=== PATIENT | female | born 1985 | race Two or more races ===

== ENCOUNTER 2020-12-31 14:00 | Emergency (ER) | payer MEDICAID ==
[~2020-12-31] VITALS: Ht 152.4 cm; Wt 45.0 kg
--- NOTE | 2020-12-31 15:49 | NUR ---
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
--- NOTE | 2020-12-31 15:54 | NUR ---
PT PRESENTS WITH ABDOMINAL DISTENTION, STATES SHE WAS NOT ABLE TO HAVE WEEKLY PARACENTESIS TODAY. DR. GILL AT BEDSIDE.
[2020-12-31] MEDS ORDERED: FOLI1TAB32 PO (16:00)
[2020-12-31] MEDS ORDERED: LACT10SO28 PO (16:00)
[2020-12-31] MEDS ORDERED: THIA100T27 PO (16:00)
[2020-12-31] MEDS ORDERED: FERR324T5 PO (16:00)
[2020-12-31] MEDS ORDERED: MIDO10TA PO (16:00)
[2020-12-31] MEDS ORDERED: LIDOCAINE 1%, 10ML ONE (16:12)
--- NOTE | 2020-12-31 16:15 | NUR ---
PT TRANSPORTED TO IR FOR PARACENTESIS.
[2020-12-31 16:18] LABS: BASOPHILS % (AUTO) 1 % (0-1); EOSINOPHILS % (AUTO) 2 % (1-7); LYMPHOCYTES % (AUTO) 12 % (22-44); MEAN CORPUSCULAR HEMOGLOBIN 35.6 pg (27.0-34.8); MEAN CORPUSCULAR HGB CONC 34.3 g/dL (32.4-35.8); MEAN PLATELET VOLUME 7.2 fL (7.4-10.4); MONOCYTES % (AUTO) 12 % (2-9); NEUTROPHILS % (AUTO) 74 % (42-75); PLATELET COUNT 168 x10^3/uL (130-400); RED BLOOD COUNT 2.63 x10^6/uL (3.82-5.3); RED CELL DISTRIBUTION WIDTH 16.3 % (9.6-15.2)
[2020-12-31 16:31] LABS: ALANINE AMINOTRANSFERASE 15 U/L (12-78); ALBUMIN 3.2 g/dL (3.4-5.0); ANION GAP 9 mmol/L (5-15); CALCIUM 8.1 mg/dL (8.5-10.1); CHLORIDE 99 mmol/L (98-107)
[2020-12-31 16:33] LABS: ALKALINE PHOSPHATASE 131 U/L (45-117); BILIRUBIN,TOTAL 3.7 mg/dL (0.2-1.0); CREATININE 0.58 mg/dL (0.55-1.02); TOTAL PROTEIN 6.6 g/dL (6.4-8.2)
[2020-12-31 16:51] VITALS: BP 104/68
--- NOTE | 2020-12-31 16:51 | NUR ---
PT BACK FROM IR, VSS.
[2020-12-31] MEDS ORDERED: ONDANSETRON ODT 4 MG ONE (17:12)
[2020-12-31] MEDS ORDERED: HYDROcodone/APAP 5/325 TABLET ONE (17:13)
[2020-12-31] MEDS ORDERED: ONDANSETRON ODT 4 MG PO ONE (17:30)
[2020-12-31] MEDS ORDERED: HYDROcodone/APAP 5/325 TABLET PO ONE (17:30)
== END 2020-12-31 17:52 | disposition home or self-care (01) ==
LOC: ED 17:46
DX: K70.31 Alcoholic cirrhosis of liver with ascites (principal); R00.0 Tachycardia, unspecified
CPT/HCPCS: 36415; 49083; 80053; 83690; 85025; 99285; J3490

== ENCOUNTER 2021-01-03 09:09 | Emergency (ER) | payer MEDICAID ==
[~2021-01-03] VITALS: Ht 152.4 cm; Wt 45.1 kg
[~2021-01-03 09:09] MED LIST: FERR324T5 PO; FOLI1TAB32 PO; LACT10SO28 PO; MIDO10TA PO; THIA100T27 PO
--- NOTE | 2021-01-03 09:30 | NUR ---
ERP WAS IN TO SEE PT. SAME TRIAGE NOTE; PT REPORTS N/V, WEAKNESS SINCE PARACENTESIS ON THURSDAY.
[2021-01-03] MEDS ORDERED: ONDANSETRON 2MG/ML, 2ML ONE (09:52)
[2021-01-03] MEDS ORDERED: FAMOTIDINE 20 MG/2 ML ONE (09:52)
[2021-01-03] MEDS ORDERED: ONDANSETRON 2MG/ML, 2ML IVPush ONE (10:00)
[2021-01-03] MEDS ORDERED: SODIUM CHLORIDE 0.9% 1,000ML IVBOLUS ONE ×3 (10:00→14:00)
[2021-01-03] MEDS ORDERED: SODIUM CHLORIDE FLUSH 10ML SYR IVF ONE (10:00)
[2021-01-03] MEDS ORDERED: FAMOTIDINE 20 MG/2 ML IVPush ONE (10:00)
[2021-01-03] MEDS ORDERED: BUME1TAB21 PO (10:03)
[2021-01-03 10:05] LABS: BASOPHILS % (AUTO) 1 % (0-1); EOSINOPHILS % (AUTO) 2 % (1-7); LYMPHOCYTES % (AUTO) 12 % (22-44); MEAN CORPUSCULAR HEMOGLOBIN 35.4 pg (27.0-34.8); MEAN CORPUSCULAR HGB CONC 34.8 g/dL (32.4-35.8); MEAN PLATELET VOLUME 6.7 fL (7.4-10.4); MONOCYTES % (AUTO) 12 % (2-9); NEUTROPHILS % (AUTO) 74 % (42-75); PLATELET COUNT 163 x10^3/uL (130-400); RED BLOOD COUNT 2.65 x10^6/uL (3.82-5.3); RED CELL DISTRIBUTION WIDTH 15.6 % (9.6-15.2)
--- NOTE | 2021-01-03 10:08 | NUR ---
PT VOMITED ABOUT 200ML BROWN FLUID. C/O MILD DIFFUSE ABD PAIN. ERP NOTIFIED. MEDICATED PER ORDERS. 500ML IV BOLUS INFUSING. PT RESTING IN [facility] NOW. AT .
[2021-01-03 10:10] LABS: ALANINE AMINOTRANSFERASE 17 U/L (12-78); ALBUMIN 2.9 g/dL (3.4-5.0); ANION GAP 6 mmol/L (5-15); CALCIUM 8.7 mg/dL (8.5-10.1); CHLORIDE 99 mmol/L (98-107); CREATININE 0.53 mg/dL (0.55-1.02)
[2021-01-03 10:18] LABS: ALKALINE PHOSPHATASE 121 U/L (45-117); BILIRUBIN,TOTAL 4.3 mg/dL (0.2-1.0); TOTAL PROTEIN 6.7 g/dL (6.4-8.2)
--- NOTE | 2021-01-03 10:53 | NUR ---
PT STATES, "MY STOMACH FEELS A LITTLE BETTER". WILL GIVE 2ND 500ML BOLUS PER ORDERS. REMAINS AT BS.
[2021-01-03 10:57] LABS: ACANTHOCYTES 1+; SCHISTOCYTES 1+
[2021-01-03 10:58] LABS: <PLATELET ESTIMATE> ADEQUATE; <PLT MORPHOLOGY> NORMAL PLT MORPH
--- NOTE | 2021-01-03 12:52 | NUR ---
PT RESTING IN [facility] WITH AT , AWAKENS EASILY. STATES SHE HAD "A FEW SIPS" OF WATER AND 1 SMALL PRETZEL. DENIES NAUSEA AT THIS TIME. CHART UP FOR RECHECK.
--- NOTE | 2021-01-03 13:30 | NUR ---
ERP AT FOR RECHECK.
[2021-01-03 14:38] VITALS: BP 103/65
--- NOTE | 2021-01-03 14:38 | NUR ---
D/C INSTRUCTIONS, MEDS & F/U APPT RV'WD WITH PT, SHE VERBALIZES UNDERSTANDING. RX GIVEN X1. ASSISTED OUT OF ED VIA OWN WC WITH SPOUSE. CAB VOUCHER PROVIDED.
== END 2021-01-03 14:41 | disposition home or self-care (01) ==
LOC: ED 09:11
DX: R11.2 Nausea with vomiting, unspecified (principal); R42 Dizziness and giddiness
CPT/HCPCS: 36415; 80053; 83690; 85025; 96361; 96374; 96375; 99285; J2405; J7030

== ENCOUNTER 2021-01-04 12:05 | Inpatient (IN) | payer MEDICAID ==
[~2021-01-04] VITALS: Ht 152.4 cm; Wt 46.3 kg
[~2021-01-04 12:05] MED LIST changes: +BUME1TAB21 PO
[2021-01-04 12:55] LABS: BASOPHILS % (AUTO) 1 % (0-1); EOSINOPHILS % (AUTO) 3 % (1-7); LYMPHOCYTES % (AUTO) 12 % (22-44); MEAN CORPUSCULAR HGB CONC 34.3 g/dL (32.4-35.8); MEAN PLATELET VOLUME 6.8 fL (7.4-10.4); MONOCYTES % (AUTO) 13 % (2-9); NEUTROPHILS % (AUTO) 71 % (42-75); PLATELET COUNT 166 x10^3/uL (130-400); RED BLOOD COUNT 2.58 x10^6/uL (3.82-5.3); RED CELL DISTRIBUTION WIDTH 15.6 % (9.6-15.2)
[2021-01-04 13:06] LABS: ALANINE AMINOTRANSFERASE 16 U/L (12-78); ALBUMIN 2.6 g/dL (3.4-5.0); ANION GAP 5 mmol/L (5-15); CALCIUM 8.5 mg/dL (8.5-10.1); CHLORIDE 101 mmol/L (98-107); CREATININE 0.59 mg/dL (0.55-1.02)
[2021-01-04 13:08] LABS: ALKALINE PHOSPHATASE 124 U/L (45-117); BILIRUBIN,TOTAL 3.9 mg/dL (0.2-1.0); TOTAL PROTEIN 6.4 g/dL (6.4-8.2)
--- NOTE | 2021-01-04 15:00 | NUR ---
PT TO ROOM FROM [facility] VIA W/C. 35 YR OLD FEMALE HERE WITH C/O "I NEED TO HAVE A PARACENTISIS. LAST ONE WAS ON THURSDAY." PT INSTRUCTED TO PUT ON GOWN. PT PROVIDED WITH WARM BLANKET. PT WITH LARGE ROUNDED ABD. C/O SOB "BECAUSE OF MY ABD" PT AWARE OF PARACENTISIS ORDER. CALL LIGHT IN REACH. NO NEEDS EXPRESSED AT THIS TIME.
--- NOTE | 2021-01-04 15:11 | NUR ---
DR ALARCON AT BEDSIDE TO BRIANDA PT
[2021-01-04] MEDS ORDERED: LIDOCAINE 1%, 10ML ONE (15:30)
--- NOTE | 2021-01-04 16:07 | NUR ---
PT IN IR
--- NOTE | 2021-01-04 16:43 | NUR ---
PT RETURN FROM IR, LAYING ON RIGHT SIDE, ON PHONE, NO ACUTE DISTRESS NOTED. REPLIED "YEAH" WHEN ASKED IF FEELING BETTER. NO NEEDS EXPRESSED AT THIS TIME.
--- NOTE | 2021-01-04 18:03 | NUR ---
PT LAYING ON TIFF, WANTS TO SEE "MY DOCTOR" DISCUSSED WITH PT, THAT HE IS GONE. PT "WANTS TO BE ADMITTED, THERE IS SOMETHING ELSE GOING ON" DISCUSSED WITH DR LUNA. DR LUNA AT BEDSIDE TO SPEAK WITH PT.
[2021-01-04] MEDS ORDERED: SODIUM CHLORIDE FLUSH 10ML SYR IVF ONE (18:30)
[2021-01-04] MEDS ORDERED: CEFTRIAXONE 1,000 MG in DEXTROSE 5% 50 ML IVPB ONE (18:30)
--- NOTE | 2021-01-04 18:30 | NUR ---
PT NO LONGER CRYING. PT TALKING TO PT ON PHONE. IV STATED BY SHOPFITTER. WAITING FOR FURTHER DISPOSITION.
[2021-01-04] MEDS ORDERED: SODIUM CHLORIDE FLUSH 10ML SYR IVF PRN (19:00)
--- NOTE | 2021-01-04 19:17 | NUR ---
REPORT TO TIARRA TINAJERO
--- NOTE | 2021-01-04 19:54 | NUR ---
PT RESTING IN BED PLAYING ON HER CELL PHONE. PT IN NO ACUTE DISTRESS AT THIS TIME. PTS ROCEPHIN HAS INFUSED FROM PREVIOUS SHIFT, AND IS COMPLETE AND DISCONNECTED.
[2021-01-04] MEDS ORDERED: LIDODERM 5% PATCH TD PRN (20:30)
--- NOTE | 2021-01-04 21:43 | NUR ---
REPORT CALLED TO MIRI RN, AND PT SLEEPING, NO ACUTE DISTRESS AND PT TAKEN TO FLOOR BED WITHOUT INCIDENT. PIV SITE INTACT, NO REDNESS OR SWELLING.
[2021-01-04] MEDS: LACTULOSE 10 GM/15 ML UDC PO SCH (22:28)
[2021-01-04] MEDS: BUMETANIDE 1 MG TABLET PO SCH (22:28)
[2021-01-04] MEDS: MIDODRINE 5 MG TABLET PO SCH (22:28)
[2021-01-04] MEDS: ALBUMIN HUMAN 25% 100 ML IV SCH (22:57)
[2021-01-05 01:54] VITALS: BP 103/66
[2021-01-05 06:26] LABS: MEAN CORPUSCULAR HEMOGLOBIN 35.6 pg (27.0-34.8); MEAN PLATELET VOLUME 7.6 fL (7.4-10.4); PLATELET COUNT 140 x10^3/uL (130-400); RED CELL DISTRIBUTION WIDTH 15.1 % (9.6-15.2)
[2021-01-05 06:34] LABS: CHLORIDE 99 mmol/L (98-107)
[2021-01-05 06:39] LABS: ALANINE AMINOTRANSFERASE 13 U/L (12-78); ALBUMIN 2.7 g/dL (3.4-5.0); ALKALINE PHOSPHATASE 90 U/L (45-117); ANION GAP 9 mmol/L (5-15); BILIRUBIN,TOTAL 3.6 mg/dL (0.2-1.0); CALCIUM 8.1 mg/dL (8.5-10.1); CREATININE 0.51 mg/dL (0.55-1.02); TOTAL PROTEIN 5.7 g/dL (6.4-8.2)
[2021-01-05] MEDS: ALBUMIN HUMAN 25% 100 ML IV SCH ×2 (06:54→19:37)
[2021-01-05 07:15] LABS: EOS#(MANUAL) 0.14 x10^3/uL (0.0-0.4); EOS% (MANUAL) 3 % (1-7); LYMPH#(MANUAL) 0.66 x10^3/uL (1-3.4); LYMPHS% (MANUAL) 14 % (22-44); MONOS#(MANUAL) 0.61 x10^3/uL (0.3-2.7); MONOS% (MANUAL) 13 % (2-9); SEG#(MANUAL) 3.24 x10^3/uL (1.8-6.8); SEGS% (MANUAL) 69 % (42-75)
[2021-01-05 07:16] LABS: ANISOCYTOSIS 1+; METAMYELOCYTES# (MANUAL) 0.05 x10^3/uL (0-0); METAMYELOCYTES% (MANUAL) 1 % (0-1)
[2021-01-05 07:17] LABS: ACANTHOCYTES 1+; SCHISTOCYTES 1+
[2021-01-05 07:19] LABS: <PLATELET ESTIMATE> ADEQUATE; <PLT MORPHOLOGY> NORMAL PLT MORPH
[2021-01-05 09:15] VITALS: BP 109/65
[2021-01-05] MEDS: THIAMINE 100MG TABLET PO SCH (09:51)
[2021-01-05] MEDS: BUMETANIDE 1 MG TABLET PO SCH ×2 (09:51→22:47)
[2021-01-05] MEDS: LACTULOSE 10 GM/15 ML UDC PO SCH ×3 (09:51→21:00)
[2021-01-05] MEDS: FERROUS SULFATE 325 MG TABLET PO SCH (09:51)
[2021-01-05] MEDS: FOLIC ACID 1 MG TABLET PO SCH (09:51)
[2021-01-05] MEDS: MIDODRINE 5 MG TABLET PO SCH ×3 (09:51→22:46)
[2021-01-05] MEDS ORDERED: MAGNESIUM SULFATE PMX 4GM/100M 100 ML IVPB ONE (10:00)
[2021-01-05] MEDS: OXYcodone IR 5MG TABLET PO PRN (10:03)
[2021-01-05] MEDS: AMPICILLIN/SULBACTAM 3 GM in SODIUM CHLORIDE 0.9% 100 ML IV SCH ×2 (12:46→19:03)
[2021-01-05 13:16] VITALS: BP 103/65
[2021-01-05] MEDS ORDERED: VANCOMYCIN PER PHARMACY MC PRN (14:30)
[2021-01-05] MEDS ORDERED: PHARMACOKINETIC CONSULTATION MC ONE (15:00)
[2021-01-05] MEDS ORDERED: VANCOMYCIN 1,200 MG in SODIUM CHLORIDE 0.9% 250 ML IV ONE (15:00)
[2021-01-05] MEDS ORDERED: PHARMACOKINETIC MONITORING MC PRN (15:00)
[2021-01-05 18:28] VITALS: BP 100/62
[2021-01-05] MEDS ORDERED: CEFTRIAXONE 1,000 MG in DEXTROSE 5% 50 ML IVPB SCH (20:30)
[2021-01-05] MEDS: ONDANSETRON 2MG/ML, 2ML IVPush PRN (21:15)
[2021-01-06 00:22] VITALS: BP 101/60
[2021-01-06] MEDS: VANCOMYCIN 1,000 MG in SODIUM CHLORIDE 0.9% 100 ML IV SCH ×3 (00:33→15:51)
[2021-01-06] MEDS: AMPICILLIN/SULBACTAM 3 GM in SODIUM CHLORIDE 0.9% 100 ML IV SCH ×2 (02:20→07:59)
[2021-01-06] MEDS: ONDANSETRON 2MG/ML, 2ML IVPush PRN ×3 (03:36→20:06)
[2021-01-06] MEDS: ALBUMIN HUMAN 25% 100 ML IV SCH ×2 (03:37→12:25)
[2021-01-06] MEDS: OXYcodone IR 5MG TABLET PO PRN ×3 (03:37→20:07)
[2021-01-06 06:27] LABS: BASOPHILS % (AUTO) 1 % (0-1); EOSINOPHILS % (AUTO) 3 % (1-7); LYMPHOCYTES % (AUTO) 16 % (22-44); MEAN CORPUSCULAR HGB CONC 34.9 g/dL (32.4-35.8); MEAN PLATELET VOLUME 7.2 fL (7.4-10.4); MONOCYTES % (AUTO) 17 % (2-9); NEUTROPHILS % (AUTO) 62 % (42-75); PLATELET COUNT 122 x10^3/uL (130-400); RED BLOOD COUNT 2.15 x10^6/uL (3.82-5.3); RED CELL DISTRIBUTION WIDTH 14.7 % (9.6-15.2)
[2021-01-06 06:31] LABS: ANION GAP 8 mmol/L (5-15); CHLORIDE 97 mmol/L (98-107)
[2021-01-06 06:32] LABS: CREATININE 0.44 mg/dL (0.55-1.02)
[2021-01-06 08:22] VITALS: BP 112/73
[2021-01-06] MEDS ORDERED: POTASSIUM CHLORIDE 20 MEQ TAB.ER.PRT PO SCH ×2 (09:00→16:00)
[2021-01-06] MEDS ORDERED: SENNA/DOCUSATE TABLET PO SCH (09:00)
[2021-01-06] MEDS: FOLIC ACID 1 MG TABLET PO SCH (09:34)
[2021-01-06] MEDS: BUMETANIDE 1 MG TABLET PO SCH ×2 (09:34→20:07)
[2021-01-06] MEDS: THIAMINE 100MG TABLET PO SCH (09:35)
[2021-01-06] MEDS: MIDODRINE 5 MG TABLET PO SCH ×3 (09:35→20:07)
[2021-01-06] MEDS: FERROUS SULFATE 325 MG TABLET PO SCH (09:36)
[2021-01-06] MEDS: LACTULOSE 10 GM/15 ML UDC PO SCH ×3 (09:40→20:06)
[2021-01-06 12:11] VITALS: BP 116/71
[2021-01-06] MEDS: ENOXAPARIN 40 MG/0.4 ML SQ SCH (15:35)
[2021-01-06 16:28] LABS: MICROSCOPIC INDICATED
[2021-01-06 18:32] VITALS: BP 100/63
[2021-01-07 01:05] VITALS: BP 102/48
[2021-01-07] MEDS: ONDANSETRON 2MG/ML, 2ML IVPush PRN ×3 (04:49→20:14)
[2021-01-07] MEDS: OXYcodone IR 5MG TABLET PO PRN ×3 (04:50→20:14)
[2021-01-07 05:51] LABS: MEAN CORPUSCULAR HEMOGLOBIN 35.1 pg (27.0-34.8); MEAN CORPUSCULAR HGB CONC 34.8 g/dL (32.4-35.8); MEAN PLATELET VOLUME 7.2 fL (7.4-10.4); PLATELET COUNT 116 x10^3/uL (130-400); RED BLOOD COUNT 2.03 x10^6/uL (3.82-5.3); RED CELL DISTRIBUTION WIDTH 14.8 % (9.6-15.2)
[2021-01-07 06:04] LABS: ALBUMIN 3.2 g/dL (3.4-5.0); ANION GAP 4 mmol/L (5-15); CALCIUM 8.1 mg/dL (8.5-10.1); CHLORIDE 97 mmol/L (98-107)
[2021-01-07 06:17] LABS: ALANINE AMINOTRANSFERASE 14 U/L (12-78); ALKALINE PHOSPHATASE 87 U/L (45-117); CREATININE 0.64 mg/dL (0.55-1.02); TOTAL PROTEIN 5.6 g/dL (6.4-8.2); VANCOMYCIN,RANDOM 14.7 mcg/mL
[2021-01-07 06:26] LABS: ACANTHOCYTES 1+; ANISOCYTOSIS 1+; BASOS#(MANUAL) 0.04 x10^3/uL (0-0.1); BASOS% (MANUAL) 1 % (0-1); EOS#(MANUAL) 0.15 x10^3/uL (0.0-0.4); EOS% (MANUAL) 4 % (1-7); LYMPH#(MANUAL) 0.72 x10^3/uL (1-3.4); LYMPHS% (MANUAL) 19 % (22-44); MONOS#(MANUAL) 0.53 x10^3/uL (0.3-2.7); MONOS% (MANUAL) 14 % (2-9); SEG#(MANUAL) 2.36 x10^3/uL (1.8-6.8); SEGS% (MANUAL) 62 % (42-75)
[2021-01-07 06:27] LABS: <PLATELET ESTIMATE> DECREASED; PMNS WITH VACUOLES 1+; SCHISTOCYTES 1+; SMALL PLATELETS 1+
[2021-01-07 08:30] VITALS: BP 102/48
[2021-01-07] MEDS: FOLIC ACID 1 MG TABLET PO SCH (08:48)
[2021-01-07] MEDS: FERROUS SULFATE 325 MG TABLET PO SCH (08:48)
[2021-01-07] MEDS: BUMETANIDE 1 MG TABLET PO SCH ×2 (08:48→20:14)
[2021-01-07] MEDS: SPIRONOLACTONE 25 MG TABLET PO SCH ×2 (08:48→20:14)
[2021-01-07] MEDS: THIAMINE 100MG TABLET PO SCH (08:48)
[2021-01-07] MEDS: POTASSIUM CHLORIDE 20 MEQ TAB.ER.PRT PO SCH ×2 (08:48→13:06)
[2021-01-07] MEDS: MIDODRINE 5 MG TABLET PO SCH ×3 (08:48→20:14)
[2021-01-07] MEDS: LACTULOSE 10 GM/15 ML UDC PO SCH ×3 (08:49→20:13)
[2021-01-07] MEDS ORDERED: SPIRONOLACTONE 25 MG TABLET PO SCH (09:00)
[2021-01-07] MEDS: VANCOMYCIN 1,000 MG in SODIUM CHLORIDE 0.9% 100 ML IV SCH ×2 (09:36→20:13)
[2021-01-07 14:32] VITALS: BP 111/51
[2021-01-07] MEDS: ENOXAPARIN 40 MG/0.4 ML SQ SCH (14:44)
[2021-01-07 18:53] VITALS: BP 99/60
[2021-01-08 01:41] VITALS: BP 102/62
[2021-01-08] MEDS: OXYcodone IR 5MG TABLET PO PRN ×4 (02:12→22:16)
[2021-01-08] MEDS: ONDANSETRON 2MG/ML, 2ML IVPush PRN ×4 (02:12→22:16)
[2021-01-08 06:31] LABS: BASOPHILS % (AUTO) 1 % (0-1); EOSINOPHILS % (AUTO) 5 % (1-7); LYMPHOCYTES % (AUTO) 21 % (22-44); MEAN CORPUSCULAR HGB CONC 34.8 g/dL (32.4-35.8); MEAN PLATELET VOLUME 7.1 fL (7.4-10.4); MONOCYTES % (AUTO) 17 % (2-9); NEUTROPHILS % (AUTO) 55 % (42-75); PLATELET COUNT 135 x10^3/uL (130-400); RED BLOOD COUNT 2.18 x10^6/uL (3.82-5.3); RED CELL DISTRIBUTION WIDTH 15.3 % (9.6-15.2)
[2021-01-08 06:38] LABS: ANION GAP 7 mmol/L (5-15); CALCIUM 8.5 mg/dL (8.5-10.1); CHLORIDE 98 mmol/L (98-107); CREATININE 0.68 mg/dL (0.55-1.02)
[2021-01-08 08:55] VITALS: BP 102/65
[2021-01-08] MEDS: MIDODRINE 5 MG TABLET PO SCH ×3 (10:25→21:28)
[2021-01-08] MEDS: LACTULOSE 10 GM/15 ML UDC PO SCH ×3 (10:25→21:28)
[2021-01-08] MEDS: SPIRONOLACTONE 25 MG TABLET PO SCH ×2 (10:25→21:27)
[2021-01-08] MEDS: VANCOMYCIN 1,000 MG in SODIUM CHLORIDE 0.9% 100 ML IV SCH ×2 (10:26→22:15)
[2021-01-08] MEDS: BUMETANIDE 1 MG TABLET PO SCH ×2 (10:26→21:28)
[2021-01-08] MEDS: FERROUS SULFATE 325 MG TABLET PO SCH (10:26)
[2021-01-08] MEDS: FOLIC ACID 1 MG TABLET PO SCH (10:26)
[2021-01-08] MEDS: THIAMINE 100MG TABLET PO SCH (10:26)
[2021-01-08 14:20] VITALS: BP 90/50
[2021-01-08] MEDS: ENOXAPARIN 40 MG/0.4 ML SQ SCH (14:30)
[2021-01-08 19:26] VITALS: BP 95/62
[2021-01-09 01:19] VITALS: BP 99/61
[2021-01-09] MEDS: ONDANSETRON 2MG/ML, 2ML IVPush PRN ×3 (02:57→17:47)
[2021-01-09] MEDS: OXYcodone IR 5MG TABLET PO PRN ×2 (02:58→17:48)
[2021-01-09 07:48] LABS: BASOPHILS % (AUTO) 1 % (0-1); EOSINOPHILS % (AUTO) 6 % (1-7); LYMPHOCYTES % (AUTO) 19 % (22-44); MEAN CORPUSCULAR HGB CONC 34.4 g/dL (32.4-35.8); MEAN PLATELET VOLUME 7.5 fL (7.4-10.4); MONOCYTES % (AUTO) 17 % (2-9); NEUTROPHILS % (AUTO) 57 % (42-75); PLATELET COUNT 133 x10^3/uL (130-400); RED BLOOD COUNT 2.27 x10^6/uL (3.82-5.3); RED CELL DISTRIBUTION WIDTH 15.1 % (9.6-15.2)
[2021-01-09 07:53] VITALS: BP 94/60
[2021-01-09 07:56] LABS: CHLORIDE 93 mmol/L (98-107)
[2021-01-09] MEDS: THIAMINE 100MG TABLET PO SCH (07:56)
[2021-01-09] MEDS: SPIRONOLACTONE 25 MG TABLET PO SCH (07:56)
[2021-01-09] MEDS: MIDODRINE 5 MG TABLET PO SCH ×2 (07:56→17:48)
[2021-01-09] MEDS: BUMETANIDE 1 MG TABLET PO SCH (07:57)
[2021-01-09] MEDS: FOLIC ACID 1 MG TABLET PO SCH (07:57)
[2021-01-09] MEDS: FERROUS SULFATE 325 MG TABLET PO SCH (07:57)
[2021-01-09] MEDS: LACTULOSE 10 GM/15 ML UDC PO SCH ×2 (07:58→17:48)
[2021-01-09 08:06] LABS: ALANINE AMINOTRANSFERASE 12 U/L (12-78); ALBUMIN 2.8 g/dL (3.4-5.0); ALKALINE PHOSPHATASE 95 U/L (45-117); ANION GAP 8 mmol/L (5-15); CALCIUM 8.6 mg/dL (8.5-10.1); CREATININE 1.06 mg/dL (0.55-1.02); TOTAL PROTEIN 5.6 g/dL (6.4-8.2)
[2021-01-09] MEDS ORDERED: LIDOCAINE 1%, 10ML ONE (08:07)
[2021-01-09] MEDS: ALBUMIN HUMAN 25% 100 ML IV SCH ×2 (09:40→15:38)
[2021-01-09] MEDS ORDERED: DAPTOMYCIN 300 MG in SODIUM CHLORIDE 0.9% 100 ML IVPB SCH (12:00)
[2021-01-09 13:42] VITALS: BP 93/61
[2021-01-09] MEDS: ENOXAPARIN 40 MG/0.4 ML SQ SCH (14:30)
[2021-01-09] MEDS ORDERED: SPIR25TA PO (16:27)
[2021-01-09] MEDS ORDERED: daptomycin IV (16:27)
== END 2021-01-09 18:02 | disposition home or self-care (01) | DRG 280 ==
LOC: ED 13:42 → EDIP 18:32 → 3N 22:02
PROVIDERS: ADMIT Family Medicine; ATTEND Family Medicine
PROC: 0W9G3ZZ Drainage of Peritoneal Cavity, Percutaneous Approach (ICD-10-PCS; 2021-01-04)
PROC: 02HV33Z Insertion of Infusion Device into Superior Vena Cava, Percutaneous Approach (ICD-10-PCS; principal; 2021-01-09)
PROC: B548ZZA Ultrasonography of Superior Vena Cava, Guidance (ICD-10-PCS; 2021-01-09)
PROC: B5181ZA Fluoroscopy of Superior Vena Cava using Low Osmolar Contrast, Guidance (ICD-10-PCS; 2021-01-09)
PROC: 0W9G3ZZ Drainage of Peritoneal Cavity, Percutaneous Approach (ICD-10-PCS; 2021-01-09)
DX: K70.31 Alcoholic cirrhosis of liver with ascites (principal); E43 Unspecified severe protein-calorie malnutrition; D69.6 Thrombocytopenia, unspecified; I95.89 Other hypotension; R78.81 Bacteremia; K76.6 Portal hypertension; D63.8 Anemia in other chronic diseases classified elsewhere; E87.1 Hypo-osmolality and hyponatremia; E88.09 Other disorders of plasma-protein metabolism, not elsewhere classified; Z20.822 Contact with and (suspected) exposure to COVID-19; B95.62 Methicillin resistant Staphylococcus aureus infection as the cause of diseases classified elsewhere; D53.9 Nutritional anemia, unspecified; F10.10 Alcohol abuse, uncomplicated; D75.89 Other specified diseases of blood and blood-forming organs; Y90.9 Presence of alcohol in blood, level not specified; E83.42 Hypomagnesemia; E87.6 Hypokalemia; Z80.0 Family history of malignant neoplasm of digestive organs; Z87.891 Personal history of nicotine dependence; Z68.1 Body mass index [BMI] 19.9 or less, adult; Z79.899 Other long term (current) drug therapy
CPT/HCPCS: 36415; 82042; 89051; 99285; J3490; 36573; 49083; 71045; 80048; 80053; 80202; 81001; 82550; 83605; 83615; 83690; 83735; 84443; 85018; 85025; 87040; 87070; 87077; 87147; 87186; 87205; 87635; 93306; 96361; 96374; 96375; G0378; J0295; J0696; J0878; J2405; J3370; P9047; C1751; J3475; J7030; J7050

== ENCOUNTER 2021-01-13 13:39 | Emergency (ER) | payer MEDICAID ==
[~2021-01-13] VITALS: Ht 152.4 cm; Wt 53.2 kg
[~2021-01-13 13:39] MED LIST changes: +SPIR25TA PO; +daptomycin IV
[2021-01-13] MEDS ORDERED: DAPTOMYCIN 300 MG in SODIUM CHLORIDE 0.9% 100 ML IVPB ONE (14:30)
[2021-01-13] MEDS ORDERED: LIDOCAINE 1%, 10ML ONE ×2 (14:30→14:40)
--- NOTE | 2021-01-13 14:50 | NUR ---
PT AT IR. ABX REQUESTED FROM PHARMACY.
[2021-01-13 15:28] VITALS: BP 109/74
--- NOTE | 2021-01-13 15:28 | NUR ---
PT BACK FROM IR. IV DAPTO STARTED PER JUL.
== END 2021-01-13 16:24 ==
LOC: ED 14:12
DX: R18.8 Other ascites (principal); R10.9 Unspecified abdominal pain
CPT/HCPCS: 49083; 96365; 99285; J0878; J3490

== ENCOUNTER 2021-01-17 09:40 | Emergency (ER) | payer MEDICAID ==
[~2021-01-17] VITALS: Ht 152.4 cm; Wt 55.3 kg
[2021-01-17 11:06] LABS: BASOPHILS % (AUTO) 1 % (0-1); EOSINOPHILS % (AUTO) 3 % (1-7); LYMPHOCYTES % (AUTO) 15 % (22-44); MEAN CORPUSCULAR HEMOGLOBIN 34.5 pg (27.0-34.8); MEAN CORPUSCULAR HGB CONC 34.3 g/dL (32.4-35.8); MONOCYTES % (AUTO) 17 % (2-9); NEUTROPHILS % (AUTO) 64 % (42-75); PLATELET COUNT 187 x10^3/uL (130-400); RED BLOOD COUNT 2.44 x10^6/uL (3.82-5.3); RED CELL DISTRIBUTION WIDTH 14.5 % (9.6-15.2)
[2021-01-17 11:13] LABS: ALANINE AMINOTRANSFERASE 10 U/L (12-78); ANION GAP 8 mmol/L (5-15); CALCIUM 8.2 mg/dL (8.5-10.1); CHLORIDE 106 mmol/L (98-107); CREATININE 0.81 mg/dL (0.55-1.02)
[2021-01-17 11:16] LABS: ALKALINE PHOSPHATASE 131 U/L (45-117); BILIRUBIN,TOTAL 4.9 mg/dL (0.2-1.0); TOTAL PROTEIN 6.6 g/dL (6.4-8.2)
[2021-01-17] MEDS ORDERED: LIDOCAINE 1%, 10ML ONE (12:47)
--- NOTE | 2021-01-17 15:42 | NUR ---
MACHINE HOOP MAKER: PT TO ROOM FROM [facility]
--- NOTE | 2021-01-17 15:53 | NUR ---
THIS IS A 35 YO F W/ C/O WORSENING BILAT LWR EXTREMITY EDEMA AND ASCITES. PT REPORTS HAD PARACENTESIS DONE ON THURSDAY. PT ALSO HAD PARACENTESIS WHILE WAITING IN [facility], W/ 0.5L OFF. PT PRESENTS W/ PICC LINE. PT STATES THAT SHE IS SUPPOSED TO HAVE DAILY ABX INFUSION FOR INFECTION BUT HAS MISSED THE PAST 2 DAYS WELL 2 DAYS LAST WEEK D/T TRANSPORTATION ISSUES. PT RESTING ON GURNEY W/ ALL LIGHT IN REACH, SIDE RAILS UPX2 AND FAMILY AT BEDSIDE. SWAPNA DOUGLAS. AWAITING ERP EVAL.
--- NOTE | 2021-01-17 15:56 | NUR ---
PT EDUCATED ON NEED FOR URINE SAMPLE.
--- NOTE | 2021-01-17 16:44 | NUR ---
PER CHARITY BLANK PT HAD DC PLAN W/ LAST ADMIT INCLUDING ARRANGED RIDES AND RESOURCES. AT BEDSIDE TO SPEAK W/ PT.
[2021-01-17] MEDS ORDERED: DAPTOMYCIN 300 MG in SODIUM CHLORIDE 0.9% 100 ML IVPB ONE (17:00)
--- NOTE | 2021-01-17 17:05 | NUR ---
DEEPTI VIVAR FROM PHARMACY.
[2021-01-17 17:15] VITALS: BP 96/65
--- NOTE | 2021-01-17 17:30 | NUR ---
PT SPOUSE ON PHONE STATING THAT THEY ARE NOT ABLE TO GET TO INFUSION APT D/T COMPANY WANTING TO PICK HER UP 3 HOURS BEFORE APT TIME.
[2021-01-17] MEDS ORDERED: OXYcodone IR 5MG TABLET PO ONE (18:40)
--- NOTE | 2021-01-17 18:40 | NUR ---
PT REQUESTING PAIN MEDS. STATES [facility] WILL BE HERE SOON. ERP UPDATED.
[2021-01-17] MEDS ORDERED: OXYcodone IR 5MG TABLET ONE (18:42)
--- NOTE | 2021-01-17 18:48 | NUR ---
Patient given discharge instructions and they have confirmed that they understand the instructions. Patient wheeled to dc desk per pt request. Patient states that they called an ub[employer] to get home.
== END 2021-01-17 18:53 | disposition home or self-care (01) ==
LOC: ED 12:46
DX: K70.31 Alcoholic cirrhosis of liver with ascites (principal); R78.81 Bacteremia
CPT/HCPCS: 36415; 49083; 71045; 80053; 83605; 84703; 85025; 87040; 96365; 99285; J0878; J3490

== ENCOUNTER 2021-01-19 11:28 | Emergency (ER) | payer MEDICAID ==
[~2021-01-19] VITALS: Ht 152.4 cm; Wt 51.6 kg
--- NOTE | 2021-01-19 12:04 | NUR ---
IN US. PT'S SPOUSE IN ROOM.
--- NOTE | 2021-01-19 12:12 | NUR ---
patient in ultrasound. patient states she was seen here for a blood infection and was to get outpatient iv antibiotics, but states she had no ride. she hasn't gotten infusion since last . hypotensive in triage, went to start line in ultrasound but patient was 92/57 map 69 and she has a picc line in place in right arm.
[2021-01-19] MEDS ORDERED: LIDOCAINE 1%, 10ML ONE (12:22)
[2021-01-19] MEDS ORDERED: SODIUM CHLORIDE 0.9% 1,000ML IVBOLUS ONE (12:30)
--- NOTE | 2021-01-19 13:03 | NUR ---
patient still in ultrasound
--- NOTE | 2021-01-19 13:21 | NUR ---
patient back from ultrasound
[2021-01-19] MEDS ORDERED: ALBUMIN HUMAN 25% 100 ML IV ONE (13:30)
[2021-01-19 14:14] VITALS: BP 105/62
== END 2021-01-19 14:28 | disposition home or self-care (01) ==
LOC: ED 14:07
DX: K70.31 Alcoholic cirrhosis of liver with ascites (principal)
CPT/HCPCS: 49083; 93005; 96361; 96365; 99285; J3490; J7030; P9047

== ENCOUNTER 2021-01-22 05:06 | Emergency (ER) | payer MEDICAID ==
[~2021-01-22] VITALS: Ht 152.4 cm; Wt 52.3 kg
[2021-01-22 05:41] LABS: BASOPHILS % (AUTO) 1 % (0-1); EOSINOPHILS % (AUTO) 0 % (1-7); LYMPHOCYTES % (AUTO) 5 % (22-44); MEAN CORPUSCULAR HEMOGLOBIN 33.9 pg (27.0-34.8); MEAN CORPUSCULAR HGB CONC 34.4 g/dL (32.4-35.8); MEAN PLATELET VOLUME 7.6 fL (7.4-10.4); MONOCYTES % (AUTO) 13 % (2-9); NEUTROPHILS % (AUTO) 81 % (42-75); PLATELET COUNT 242 x10^3/uL (130-400); RED BLOOD COUNT 2.69 x10^6/uL (3.82-5.3); RED CELL DISTRIBUTION WIDTH 14.2 % (9.6-15.2)
[2021-01-22 05:48] LABS: CALCIUM 8.1 mg/dL (8.5-10.1); CHLORIDE 97 mmol/L (98-107)
[2021-01-22 05:54] LABS: ALANINE AMINOTRANSFERASE 9 U/L (12-78); ALBUMIN 2.5 g/dL (3.4-5.0); ALKALINE PHOSPHATASE 90 U/L (45-117); ANION GAP 13 mmol/L (5-15); BILIRUBIN,TOTAL 6.5 mg/dL (0.2-1.0); CREATININE 2.21 mg/dL (0.55-1.02); TOTAL PROTEIN 5.8 g/dL (6.4-8.2)
[2021-01-22 06:08] LABS: ACANTHOCYTES 1+; ANISOCYTOSIS 1+; ECHINOCYTES 1+
[2021-01-22 06:09] LABS: SCHISTOCYTES 1+
[2021-01-22 06:10] LABS: <PLATELET ESTIMATE> ADEQUATE; <PLT MORPHOLOGY> NORMAL PLT MORPH
--- NOTE | 2021-01-22 06:21 | NUR ---
GOPI SIMENTAL AWARE OF LOW BP RESULTS. GOPI SIMENTAL SAID TO GIVE 500ML BOLUS OF NS FOR HYPOTENSION
[2021-01-22] MEDS ORDERED: SODIUM CHLORIDE 0.9%, 500ML IVBOLUS ONE (06:30)
[2021-01-22 06:33] VITALS: BP 88/42
--- NOTE | 2021-01-22 07:03 | NUR ---
REPORT FROM OLU TINAJERO. PT RESTING IN BED, CALL LIGHT IN REACH.
[2021-01-22] MEDS ORDERED: LIDOCAINE 1%, 10ML ONE (07:30)
--- NOTE | 2021-01-22 08:17 | NUR ---
PT TO IR
[2021-01-22] MEDS ORDERED: ALBUMIN HUMAN 25% 100 ML IV ONE (08:30)
--- NOTE | 2021-01-22 09:19 | NUR ---
Pt resting in bed, call light in reach. medication infusing
--- NOTE | 2021-01-22 09:57 | NUR ---
DISCHARGE INSTRUCTIONS REVIEWED
== END 2021-01-22 10:28 | disposition home or self-care (01) ==
LOC: ED 05:11
DX: K70.31 Alcoholic cirrhosis of liver with ascites (principal); K72.90 Hepatic failure, unspecified without coma
CPT/HCPCS: 36415; 49083; 80053; 85025; 96361; 96365; 99285; J3490; J7040; P9047

== ENCOUNTER 2021-01-23 17:03 | Inpatient (IN) | payer MEDICAID ==
[~2021-01-23] VITALS: Ht 162.6 cm; Wt 45.0 kg
--- NOTE | 2021-01-23 17:17 | NUR ---
PT BIB [facility] FOR [facility]BD [facility] X2 DAYS AND ASCITES. PT HAD PARACENTESIS YESTERDAY "I GET THEM EVERY TWO DAYS" PT REPORTS X SEVERAL WEEKS, AND BEFORE THAT EVERY 5 DAYS. PT REPORTS NO RELIEF FROM PAIN FOLLOWING PARACENTESIS YESTERDAY. PT HAS PICC LINE IN LEFT UPPER ARM PT REPORTS WAS PLACED 2 WEEKS AGO FOR A "BLOOD INFECTION". PT ADMITS THAT SHE HAS NOT RECEIVED MANY OF HER PICC ABX SHE WAS PRESCRIBED, WHICH WAS EVER 24 HOURS, AND THE LAST DOSE MAY HAVE BEEN THE Jan.
[2021-01-23] MEDS ORDERED: ALBUMIN HUMAN 25% 100 ML IV ONE (17:30)
[2021-01-23 17:53] LABS: MEAN CORPUSCULAR HEMOGLOBIN 33.2 pg (27.0-34.8); MEAN CORPUSCULAR HGB CONC 33.9 g/dL (32.4-35.8); MEAN PLATELET VOLUME 7.4 fL (7.4-10.4); PLATELET COUNT 282 x10^3/uL (130-400)
[2021-01-23 18:04] LABS: ALANINE AMINOTRANSFERASE 8 U/L (12-78); ALBUMIN 2.3 g/dL (3.4-5.0); ANION GAP 11 mmol/L (5-15); CALCIUM 7.8 mg/dL (8.5-10.1); CHLORIDE 96 mmol/L (98-107); CREATININE 2.17 mg/dL (0.55-1.02)
[2021-01-23 18:07] LABS: ALKALINE PHOSPHATASE 93 U/L (45-117); BILIRUBIN,TOTAL 6.6 mg/dL (0.2-1.0); TOTAL PROTEIN 5.8 g/dL (6.4-8.2)
[2021-01-23 18:18] LABS: BAND#(MANUAL) 1.46 x10^3/uL; BANDS%(MANUAL) 7 % (0-7); LYMPH#(MANUAL) 1.46 x10^3/uL (1-3.4); LYMPHS% (MANUAL) 7 % (22-44); METAMYELOCYTES# (MANUAL) 0.21 x10^3/uL (0-0); METAMYELOCYTES% (MANUAL) 1 % (0-1); MONOS#(MANUAL) 1.46 x10^3/uL (0.3-2.7); MONOS% (MANUAL) 7 % (2-9); MYELOCYTES# (MANUAL) 0.21 x10^3/uL (0-0); MYELOCYTES% (MANUAL) 1 % (0-0); SEG#(MANUAL) 16.09 x10^3/uL (1.8-6.8); SEGS% (MANUAL) 77 % (42-75)
[2021-01-23 18:19] LABS: ACANTHOCYTES 1+; ANISOCYTOSIS 1+; ECHINOCYTES 1+; SCHISTOCYTES 1+
[2021-01-23 18:20] LABS: <PLATELET ESTIMATE> ADEQUATE; <PLT MORPHOLOGY> NORMAL PLT MORPH
[2021-01-23] MEDS ORDERED: MORPHINE SULFATE 4 MG/ML, 1ML ONE ×2 (18:35→21:08)
[2021-01-23] MEDS: MORPHINE SULFATE 4 MG/ML, 1ML IVPush PRN ×2 (18:51→21:11)
[2021-01-23] MEDS ORDERED: SODIUM CHLORIDE 0.9%, 500ML IVBOLUS ONE (19:00)
[2021-01-23] MEDS ORDERED: SODIUM CHLORIDE 0.9% IV SCH (19:00)
[2021-01-23] MEDS ORDERED: DAPTOMYCIN IV SCH (19:00)
--- NOTE | 2021-01-23 19:01 | NUR ---
REPORT GIVEN TO JUAN TINAJERO
[2021-01-23 19:30] LABS: INTERNATIONAL NORMALIZED RATIO 1.81 (0.93-1.1); PROTHROMBIN TIME 18.8 Seconds (9.6-11.5)
[2021-01-23] MEDS ORDERED: BISACODYL 10 MG SUPP PR PRN (19:30)
[2021-01-23] MEDS: ALBUMIN HUMAN 25% 100 ML IV SCH (19:30)
[2021-01-23] MEDS ORDERED: SODIUM CHLORIDE 0.9% 1,000 ML IV SCH (19:30)
[2021-01-23] MEDS ORDERED: POLYETHYLENE GLYCOL 17 GM PACKET PO PRN (19:30)
[2021-01-23] MEDS ORDERED: LACTULOSE 10 GM/15 ML UDC ONE (21:52)
[2021-01-23] MEDS: ONDANSETRON 2MG/ML, 2ML IVPush PRN (22:14)
[2021-01-23] MEDS: LACTULOSE 10 GM/15 ML UDC PO SCH (22:14)
[2021-01-24 02:02] VITALS: BP 100/60
[2021-01-24] MEDS: ALBUMIN HUMAN 25% 100 ML IV SCH ×3 (03:26→20:05)
[2021-01-24] MEDS: ONDANSETRON 2MG/ML, 2ML IVPush PRN (05:38)
[2021-01-24 05:51] LABS: MEAN CORPUSCULAR HEMOGLOBIN 33.6 pg (27.0-34.8); MEAN CORPUSCULAR HGB CONC 34.2 g/dL (32.4-35.8); MEAN PLATELET VOLUME 7.4 fL (7.4-10.4); PLATELET COUNT 179 x10^3/uL (130-400); RED BLOOD COUNT 2.13 x10^6/uL (3.82-5.3); RED CELL DISTRIBUTION WIDTH 13.8 % (9.6-15.2)
[2021-01-24 06:01] LABS: INTERNATIONAL NORMALIZED RATIO 2.09 (0.93-1.1); PROTHROMBIN TIME 21.6 Seconds (9.6-11.5)
[2021-01-24 06:02] LABS: ANION GAP 8 mmol/L (5-15); CALCIUM 7.6 mg/dL (8.5-10.1); CHLORIDE 102 mmol/L (98-107); CREATININE 1.97 mg/dL (0.55-1.02)
[2021-01-24 06:03] LABS: ALANINE AMINOTRANSFERASE 7 U/L (12-78); ALBUMIN 2.4 g/dL (3.4-5.0)
[2021-01-24 06:05] LABS: ALKALINE PHOSPHATASE 77 U/L (45-117); TOTAL PROTEIN 5.1 g/dL (6.4-8.2)
[2021-01-24 06:20] LABS: ANISOCYTOSIS 1+; LYMPH#(MANUAL) 0.54 x10^3/uL (1-3.4); LYMPHS% (MANUAL) 4 % (22-44); METAMYELOCYTES# (MANUAL) 0.27 x10^3/uL (0-0); METAMYELOCYTES% (MANUAL) 2 % (0-1); MONOS#(MANUAL) 1.63 x10^3/uL (0.3-2.7); MONOS% (MANUAL) 12 % (2-9); SEG#(MANUAL) 11.15 x10^3/uL (1.8-6.8); SEGS% (MANUAL) 82 % (42-75)
[2021-01-24 06:21] LABS: <PLATELET ESTIMATE> ADEQUATE; ACANTHOCYTES 1+; ECHINOCYTES 1+; SCHISTOCYTES 1+
[2021-01-24 06:22] LABS: <PLT MORPHOLOGY> NORMAL PLT MORPH
[2021-01-24 08:33] VITALS: BP 101/58
[2021-01-24] MEDS ORDERED: DAPTOMYCIN IV SCH (09:00)
[2021-01-24] MEDS ORDERED: SENNA/DOCUSATE TABLET PO SCH (09:00)
[2021-01-24] MEDS ORDERED: FERROUS SULFATE 325 MG TABLET PO SCH (09:00)
[2021-01-24] MEDS: THIAMINE 100MG TABLET PO SCH (09:11)
[2021-01-24] MEDS: LACTULOSE 10 GM/15 ML UDC PO SCH ×3 (09:11→20:06)
[2021-01-24] MEDS: MIDODRINE 5 MG TABLET PO SCH (09:11)
[2021-01-24] MEDS: FOLIC ACID 1 MG TABLET PO SCH (09:11)
[2021-01-24] MEDS ORDERED: SODIUM POLYSTYRENE SULFONATE ORAL SUSP PO ONE (11:30)
[2021-01-24 12:13] LABS: OCCULT BLOOD NEGATIVE (NEGATIVE)
[2021-01-24 13:00] LABS: % IRON SATURATION 25 % (20-55); IRON LEVEL 31 mcg/dL (50-170); TOTAL IRON BINDING CAPACITY 123 mcg/dL (250-450)
[2021-01-24 13:01] LABS: HCT (SEDRATE) 21.2 % (34.6-47.8)
[2021-01-24 13:08] LABS: CREATINE KINASE, TOTAL < 7 U/L (26-192)
[2021-01-24] MEDS: CEFTRIAXONE 2 GM in DEXTROSE 5% 50 ML IVPB SCH (13:29)
[2021-01-24 13:42] VITALS: BP 95/51
[2021-01-24] MEDS: RIFAXIMIN 200 MG TABLET PO SCH ×2 (16:20→20:06)
[2021-01-24] MEDS ORDERED: ACETAMINOPHEN 325 MG TABLET PO PRN (18:00)
[2021-01-24 18:55] VITALS: BP 94/54
[2021-01-25] VITALS (7 sets, daily range): BP systolic 96–105; BP diastolic 48–64
[2021-01-25] MEDS: ALBUMIN HUMAN 25% 100 ML IV SCH ×2 (02:57→11:39)
[2021-01-25 05:50] LABS: BASOPHILS % (AUTO) 1 % (0-1); EOSINOPHILS % (AUTO) 0 % (1-7); LYMPHOCYTES % (AUTO) 10 % (22-44); MEAN CORPUSCULAR HEMOGLOBIN 34.2 pg (27.0-34.8); MEAN PLATELET VOLUME 6.9 fL (7.4-10.4); MONOCYTES % (AUTO) 17 % (2-9); NEUTROPHILS % (AUTO) 73 % (42-75); PLATELET COUNT 137 x10^3/uL (130-400); RED CELL DISTRIBUTION WIDTH 13.9 % (9.6-15.2)
[2021-01-25 05:56] LABS: ANION GAP 10 mmol/L (5-15); CALCIUM 7.6 mg/dL (8.5-10.1); CHLORIDE 103 mmol/L (98-107); CREATININE 1.77 mg/dL (0.55-1.02)
[2021-01-25] MEDS ORDERED: FERROUS SULFATE 325 MG TABLET PO SCH (09:00)
[2021-01-25] MEDS: THIAMINE 100MG TABLET PO SCH (11:39)
[2021-01-25] MEDS: FOLIC ACID 1 MG TABLET PO SCH (11:39)
[2021-01-25] MEDS: MIDODRINE 5 MG TABLET PO SCH (11:39)
[2021-01-25] MEDS: LACTULOSE 10 GM/15 ML UDC PO SCH ×3 (11:39→23:19)
[2021-01-25] MEDS: RIFAXIMIN 200 MG TABLET PO SCH ×3 (11:40→20:48)
[2021-01-25] MEDS: CALCIUM/VITAMIN D3 250-125 TABLET PO SCH ×2 (11:40→20:48)
[2021-01-25] MEDS: CEFTRIAXONE 2 GM in DEXTROSE 5% 50 ML IVPB SCH (13:09)
[2021-01-25 16:03] LABS: CHLORIDE,URINE RANDOM 33 mmol/L; MICROSCOPIC INDICATED; POTASSIUM,URINE RANDOM 35 mmol/L; SODIUM,URINE RANDOM 5 mmol/L
[2021-01-25] MEDS ORDERED: DAPTOMYCIN IV SCH (20:00)
[2021-01-25] MEDS ORDERED: SODIUM CHLORIDE 0.9% IV SCH (20:00)
[2021-01-26 00:53] VITALS: BP 108/66
[2021-01-26 04:31] LABS: MEAN CORPUSCULAR HEMOGLOBIN 33.9 pg (27.0-34.8); MEAN CORPUSCULAR HGB CONC 35.6 g/dL (32.4-35.8); MEAN PLATELET VOLUME 7.4 fL (7.4-10.4); PLATELET COUNT 124 x10^3/uL (130-400); RED BLOOD COUNT 2.38 x10^6/uL (3.82-5.3)
[2021-01-26 04:36] LABS: ANION GAP 9 mmol/L (5-15); CALCIUM 7.8 mg/dL (8.5-10.1); CHLORIDE 100 mmol/L (98-107)
[2021-01-26 05:30] LABS: ACANTHOCYTES 1+; ANISOCYTOSIS 1+; BANDS%(MANUAL) 1 % (0-7); ECHINOCYTES 1+; LYMPH#(MANUAL) 0.41 x10^3/uL (1-3.4); LYMPHS% (MANUAL) 4 % (22-44); METAMYELOCYTES% (MANUAL) 1 % (0-1); MONOS#(MANUAL) 0.93 x10^3/uL (0.3-2.7); MONOS% (MANUAL) 9 % (2-9); MYELOCYTES# (MANUAL) 0.21 x10^3/uL (0-0); MYELOCYTES% (MANUAL) 2 % (0-0); SCHISTOCYTES 1+; SEG#(MANUAL) 8.55 x10^3/uL (1.8-6.8); SEGS% (MANUAL) 83 % (42-75)
[2021-01-26 05:31] LABS: <PLATELET ESTIMATE> DECREASED; <PLT MORPHOLOGY> NORMAL PLT MORPH; TOXIC GRAN 1+
[2021-01-26 07:29] VITALS: BP 103/63
[2021-01-26] MEDS ORDERED: POTASSIUM CHLORIDE 20 MEQ TAB.ER.PRT PO ONE (08:00)
[2021-01-26] MEDS: RIFAXIMIN 200 MG TABLET PO SCH ×3 (08:58→22:04)
[2021-01-26] MEDS: LACTULOSE 10 GM/15 ML UDC PO SCH ×3 (08:59→21:00)
[2021-01-26] MEDS: FOLIC ACID 1 MG TABLET PO SCH (08:59)
[2021-01-26] MEDS: THIAMINE 100MG TABLET PO SCH (08:59)
[2021-01-26] MEDS: CALCIUM/VITAMIN D3 250-125 TABLET PO SCH ×2 (09:00→21:00)
[2021-01-26] MEDS ORDERED: MIDODRINE 5 MG TABLET PO SCH (09:00)
[2021-01-26] MEDS ORDERED: SENNA/DOCUSATE TABLET PO SCH (09:00)
[2021-01-26] MEDS ORDERED: FERROUS SULFATE 325 MG TABLET PO SCH (09:00)
[2021-01-26] MEDS: CEFTRIAXONE 2 GM in DEXTROSE 5% 50 ML IVPB SCH (12:20)
[2021-01-26 14:17] VITALS: BP 109/58
[2021-01-26] MEDS ORDERED: LIDOCAINE 1%, 10ML ONE (17:59)
[2021-01-26 19:55] VITALS: BP 109/75
[2021-01-26] MEDS: BUMETANIDE 1 MG TABLET PO SCH (22:03)
[2021-01-27 00:24] VITALS: BP 94/57
[2021-01-27 05:33] LABS: MEAN CORPUSCULAR HEMOGLOBIN 33.1 pg (27.0-34.8); MEAN CORPUSCULAR HGB CONC 34.8 g/dL (32.4-35.8); MEAN PLATELET VOLUME 7.1 fL (7.4-10.4); PLATELET COUNT 118 x10^3/uL (130-400); RED BLOOD COUNT 2.49 x10^6/uL (3.82-5.3); RED CELL DISTRIBUTION WIDTH 14.7 % (9.6-15.2)
[2021-01-27 05:36] LABS: ANION GAP 8 mmol/L (5-15); CALCIUM 7.7 mg/dL (8.5-10.1); CHLORIDE 100 mmol/L (98-107)
[2021-01-27 05:38] LABS: CREATININE 0.87 mg/dL (0.55-1.02)
[2021-01-27 06:16] LABS: EOS#(MANUAL) 0.14 x10^3/uL (0.0-0.4); EOS% (MANUAL) 1 % (1-7); LYMPH#(MANUAL) 1.35 x10^3/uL (1-3.4); LYMPHS% (MANUAL) 10 % (22-44); METAMYELOCYTES# (MANUAL) 0.14 x10^3/uL (0-0); METAMYELOCYTES% (MANUAL) 1 % (0-1); MONOS#(MANUAL) 0.54 x10^3/uL (0.3-2.7); MONOS% (MANUAL) 4 % (2-9); SEG#(MANUAL) 11.34 x10^3/uL (1.8-6.8); SEGS% (MANUAL) 84 % (42-75)
[2021-01-27 06:18] LABS: ACANTHOCYTES 1+; ECHINOCYTES 1+
[2021-01-27 06:19] LABS: <PLATELET ESTIMATE> DECREASED; <PLT MORPHOLOGY> NORMAL PLT MORPH; ANISOCYTOSIS 1+; SCHISTOCYTES 1+
[2021-01-27 06:20] LABS: TOXIC GRAN 1+
[2021-01-27 07:56] VITALS: BP 94/57
[2021-01-27] MEDS: RIFAXIMIN 200 MG TABLET PO SCH (07:58)
[2021-01-27] MEDS: THIAMINE 100MG TABLET PO SCH (07:58)
[2021-01-27] MEDS: FOLIC ACID 1 MG TABLET PO SCH (07:58)
[2021-01-27] MEDS: LACTULOSE 10 GM/15 ML UDC PO SCH (07:58)
[2021-01-27] MEDS: CALCIUM/VITAMIN D3 250-125 TABLET PO SCH (07:58)
[2021-01-27] MEDS: BUMETANIDE 1 MG TABLET PO SCH (07:58)
[2021-01-27] MEDS ORDERED: SPIRONOLACTONE 25 MG TABLET PO SCH (09:00)
[2021-01-27] MEDS ORDERED: POTASSIUM CHLORIDE 20 MEQ TAB.ER.PRT PO ONE (09:00)
[2021-01-27] MEDS ORDERED: MAGNESIUM SULFATE PMX 4GM/100M 100 ML IV ONE (09:00)
[2021-01-27] MEDS: CEFTRIAXONE 2 GM in DEXTROSE 5% 50 ML IVPB SCH (12:15)
== END 2021-01-27 13:21 | disposition left against medical advice (07) | DRG 720 ==
LOC: ED 18:40 → EDIP 18:48 → ED 19:23 → 4EST 21:48
PROVIDERS: ADMIT Family Medicine; ATTEND Internal Medicine
PROC: 30233N1 Transfusion of Nonautologous Red Blood Cells into Peripheral Vein, Percutaneous Approach (ICD-10-PCS; 2021-01-25)
PROC: 0T9B70Z Drainage of Bladder with Drainage Device, Via Natural or Artificial Opening (ICD-10-PCS; 2021-01-25)
PROC: 0W9G3ZZ Drainage of Peritoneal Cavity, Percutaneous Approach (ICD-10-PCS; principal; 2021-01-26)
DX: A41.9 Sepsis, unspecified organism (principal); K76.7 Hepatorenal syndrome; R57.9 Shock, unspecified; E43 Unspecified severe protein-calorie malnutrition; K65.2 Spontaneous bacterial peritonitis; D69.6 Thrombocytopenia, unspecified; E83.51 Hypocalcemia; K70.31 Alcoholic cirrhosis of liver with ascites; E87.1 Hypo-osmolality and hyponatremia; N17.9 Acute kidney failure, unspecified; K76.6 Portal hypertension; D64.9 Anemia, unspecified; E87.5 Hyperkalemia; R73.9 Hyperglycemia, unspecified; I10 Essential (primary) hypertension; K21.9 Gastro-esophageal reflux disease without esophagitis; K72.90 Hepatic failure, unspecified without coma; R65.20 Severe sepsis without septic shock; D75.89 Other specified diseases of blood and blood-forming organs; E87.6 Hypokalemia; E83.42 Hypomagnesemia; Z91.19 Patient's noncompliance with other medical treatment and regimen; Z82.49 Family history of ischemic heart disease and other diseases of the circulatory system; Z86.14 Personal history of Methicillin resistant Staphylococcus aureus infection; Z68.1 Body mass index [BMI] 19.9 or less, adult; Z22.322 Carrier or suspected carrier of Methicillin resistant Staphylococcus aureus
CPT/HCPCS: 36415; 89051; 96365; 96375; 99285; J3490; 49083; 71045; 80048; 80053; 81001; 82140; 82272; 82330; 82436; 82550; 82570; 82962; 83540; 83550; 83605; 83690; 83735; 84132; 84133; 84300; 85014; 85018; 85025; 85610; 85651; 85730; 86140; 86850; 86900; 86923; 87040; 87070; 87077; 87086; 87186; 87205; 93005; 96361; G0378; J0696; J0878; J2405; P9047; J2270; J3475; J7030; J7040; P9016

== ENCOUNTER 2021-01-28 13:00 | Emergency (ER) | payer MEDICAID ==
[~2021-01-28] VITALS: Ht 152.4 cm; Wt 42.3 kg
[2021-01-28 14:11] LABS: BASOPHILS % (AUTO) 0 % (0-1); EOSINOPHILS % (AUTO) 1 % (1-7); LYMPHOCYTES % (AUTO) 5 % (22-44); MEAN CORPUSCULAR HEMOGLOBIN 33.5 pg (27.0-34.8); MEAN CORPUSCULAR HGB CONC 34.8 g/dL (32.4-35.8); MEAN PLATELET VOLUME 7.7 fL (7.4-10.4); MONOCYTES % (AUTO) 10 % (2-9); NEUTROPHILS % (AUTO) 85 % (42-75); PLATELET COUNT 125 x10^3/uL (130-400); RED BLOOD COUNT 2.91 x10^6/uL (3.82-5.3); RED CELL DISTRIBUTION WIDTH 15.5 % (9.6-15.2)
[2021-01-28 14:16] LABS: ALBUMIN 3.2 g/dL (3.4-5.0); ANION GAP 9 mmol/L (5-15); CALCIUM 7.8 mg/dL (8.5-10.1); CHLORIDE 95 mmol/L (98-107)
--- NOTE | 2021-01-28 14:16 | NUR ---
pt wheeled back from [facility]. states she was admitted for the last couple days, but left [facility] yesterday. states she was told to go back through the infusion center. pt states she has 2 blood infections. changing into a gown. pt jaundice c distended abd.
[2021-01-28 14:20] LABS: ALANINE AMINOTRANSFERASE 8 U/L (12-78); ALKALINE PHOSPHATASE 95 U/L (45-117); BILIRUBIN,TOTAL 6.5 mg/dL (0.2-1.0); CREATININE 0.85 mg/dL (0.55-1.02); TOTAL PROTEIN 6.2 g/dL (6.4-8.2)
[2021-01-28 14:35] VITALS: BP 96/66
--- NOTE | 2021-01-28 14:36 | NUR ---
pt states she had paracentesis 2 days ago, usually gets one/wk. pt states she is getting back on schedule c her [place] [facility], but needs to have daptomycin infusion today. tbs. changed into gown. papito at bs. will ctm.
[2021-01-28] MEDS ORDERED: SODIUM CHLORIDE FLUSH 10ML SYR IVF ONE (16:00)
[2021-01-28] MEDS ORDERED: LEVOFLOXACIN 750 MG TABLET PO ONE (16:00)
[2021-01-28] MEDS ORDERED: CEFTRIAXONE 1,000 MG in DEXTROSE 5% 50 ML IVPB ONE (16:00)
[2021-01-28] MEDS ORDERED: LEVOFLOXACIN 750 MG TABLET ONE (16:07)
--- NOTE | 2021-01-28 16:48 | NUR ---
PT LEFT WITHOUT LEVAQUIN PERSCRIPTION
== END 2021-01-28 16:53 | disposition home or self-care (01) ==
LOC: ED 13:13
DX: K70.31 Alcoholic cirrhosis of liver with ascites (principal); K72.90 Hepatic failure, unspecified without coma; R17 Unspecified jaundice
CPT/HCPCS: 36415; 80053; 85025; 99283